=== PATIENT | male | born 1990 | race African-American/Black ===

== ENCOUNTER 2023-10-12 09:22 | Emergency (ER) | payer SELFPAY ==
[~2023-10-12] VITALS: Ht 190.5 cm; Wt 100.0 kg
[2023-10-12 09:38] VITALS: O2SAT 95
[2023-10-12 12:55] VITALS: BP 128/96; PULSE 68; RESP 16; TEMP 98.7
== END 2023-10-12 12:57 | disposition home or self-care (01) ==
LOC: ER 09:22
DX: F10.129 Alcohol abuse with intoxication, unspecified (principal); Y90.0 Blood alcohol level of less than 20 mg/100 ml
CPT/HCPCS: 99283